=== PATIENT | male | born 1965 | race Caucasian/White ===

== ENCOUNTER 2017-01-05 15:34 | Outpatient (CLI) | payer BC ==
--- NOTE | 2017-01-05 16:43 | RAD ---
TWO VIEWS LUMBOSACRAL SPINE: 01/05/17 COMPARISON: MRI lumbar spine 09/12/13. HISTORY: Postoperative patient with back pain. FINDINGS: Two views of the lumbosacral spine shows the patient to be status post posterior fusion of L4 throug h S1 with left sided pedicle screws. No perihardware lucency is seen. The disc spacers are in good p osition in the disc spaces. Moderate osteophytes are seen in the lower thoracic and upper lumbar spi ne. IMPRESSION: Postsurgical changes of the lumbar spine without evidence of complication. POS: [facility]
== END 2017-01-05 15:35 | disposition home or self-care (01) ==
LOC: TBSIIMAG 15:34
PROVIDERS: ATTEND Physician Assistant
DX: M54.9 Dorsalgia, unspecified (principal); Z98.1 Arthrodesis status
CPT/HCPCS: 72100

== ENCOUNTER 2017-02-07 14:31 | Outpatient (CLI) | payer BC ==
--- NOTE | 2017-02-07 18:39 | RAD ---
LUMBAR SPINE TWO VIEW 02/07/17 HISTORY: Lumbar back pain, M54.9. COMPARISON: Radiograph 01/05/17. FINDINGS: Left sided pedicle screws are present from L4-S1. No evidence of hardware complication. No evidence of loosening. No fracture. The interbody cage at L5-S1 has displaced posteriorly into the thecal sac. IMPRESSION: New posterior displacement of the L5-S1 interbody cage. This is displaced into the thecal sac and re vision may be necessary. Code T POS: [facility]
== END 2017-02-07 14:32 | disposition home or self-care (01) ==
LOC: TBSIIMAG 14:31
PROVIDERS: ATTEND Physician Assistant
DX: M54.5 Low back pain (principal); M51.27 Other intervertebral disc displacement, lumbosacral region
CPT/HCPCS: 72100

== ENCOUNTER 2017-02-13 07:25 | Day surgery (SDC) | payer BC ==
[2017-02-10 12:48] VITALS: BMI 33.0
[2017-02-13 08:33] LABS: Hematocrit 45.1 % (42.0-52.0); Mean Platelet Volume 7.9 fL (7.4-10.4); Red Blood Cell (RBC) Count 4.96 mill/uL (4.70-6.10); White Blood Cell (WBC) Count 6.1 thou/uL (4.8-10.8)
[2017-02-13 08:53] LABS: Anion Gap 11 mmol/L (10-20); BUN (Urea Nitrogen) 9 mg/dL (8.4-25.7); Calc. Creatinine Clearance 187 mL/min (70-130); Calcium 9.5 mg/dL (7.8-10.44); Carbon Dioxide 27 mmol/L (22-29); Chloride 104 mmol/L (98-107); Estimated GFR-MDRD Greater than 90
[2017-02-13] MEDS ORDERED: Midazolam HCl 2 mg/2 ml Vial ONE (09:41)
[2017-02-13] MEDS ORDERED: Propofol 500 MG/50 ML VIAL ONE (09:41)
[2017-02-13] MEDS ORDERED: Fentanyl 100 MCG/2 ML VIAL ONE ×4 (09:41→12:39)
[2017-02-13] MEDS ORDERED: CEFAZOLIN/Water 2 GM/20 ML SYRINGE ONE (10:11)
[2017-02-13] MEDS ORDERED: Ondansetron HCl/PF 4 MG/2 ML Vial ONE (10:29)
[2017-02-13] MEDS ORDERED: Propofol 200 MG/20 ML VIAL ONE ×2 (10:29)
[2017-02-13] MEDS ORDERED: Glycopyrrolate 0.2 MG/ML 5 ML SYRINGE ONE (10:29)
[2017-02-13] MEDS ORDERED: Dexamethasone 20 MG/5 ML VIAL ONE (10:29)
[2017-02-13] MEDS ORDERED: Lidocaine 2% MPF 10 ML AMP (For Epidural Use) ONE (10:29)
--- NOTE | 2017-02-13 11:41 | OP ---
DATE OF PROCEDURE: 02/13/2017 SURGEON: Pavel Joseph M.D. STOCK BROKER: Eron Malone PROCEDURE: Removal of hardware L5-S1, exploration of spinal fusion L5-S1, cancellous bone chips, BM P, local morselized autograft. Revision fusion L5-S1. PROCEDURE IN DETAIL: The patient was brought to the operating room, intubated. He was rolled in th e prone position on gel-filled chest rolls. The L5-S1 region was exposed and our level was confirme d by x-ray. We identified the prior hardware, identified the migrated interbody device and remove t his without difficulty. Next, we exposed the right L5-S1 region and prepare for the purpose of arth rodesis. We did explore the fusion and did not identify any solid fusion. We placed a combination of local morselized autograft, cancellous bone chips and BMP soaked Gelfoam patties over the right L 5-S1 region for the purpose of arthrodesis. The wound was extensively irrigated, immaculate hemosta sis was secured. Vancomycin powder was applied and the wound was closed in anatomic layers.
[2017-02-13] MEDS ORDERED: Ketorolac Tromethamine 30 MG/ML VIAL ONE (13:11)
[2017-02-13] MEDS ORDERED: HYDROcodone/Acetaminophen 10/325 mg Tablet ONE (13:54)
== END 2017-02-13 16:00 | disposition home or self-care (01) ==
LOC: SDC 07:25
PROVIDERS: ATTEND Neurological Surgery
PROC: 0SP30AZ Removal of Interbody Fusion Device from Lumbosacral Joint, Open Approach (ICD-10-PCS; principal; 2017-02-13)
PROC: 0SG3071 Fusion of Lumbosacral Joint with Autologous Tissue Substitute, Posterior Approach, Posterior Column, Open Approach (ICD-10-PCS; principal; 2017-02-13)
DX: M54.16 Radiculopathy, lumbar region (principal); Z79.899 Other long term (current) drug therapy; Z88.2 Allergy status to sulfonamides; Z88.1 Allergy status to other antibiotic agents; Z91.041 Radiographic dye allergy status; Z98.1 Arthrodesis status; Z98.890 Other specified postprocedural states
CPT/HCPCS: 76001; 80048; 85027; 96374; C1713; J1100; J1885; J2001; J2250; J2405; J2704; J3010; J3370

== ENCOUNTER 2017-02-28 10:56 | Outpatient (CLI) | payer BC ==
--- NOTE | 2017-02-28 13:29 | RAD ---
TWO VIEWS LUMBAR SPINE: Date: 02-28-17 Comparison: 02-07-17 History: Left hip pain, prior back surgery. FINDINGS: Cutaneous sharla overlie the lower lumbar spine. There are stale left sided L4-5 and S1 pedicle scre ws with a vertically oriented interlocking esther. The intervertebral disc device present on the prior study at L5-S1 has been removed. There is a stabl e intervertebral disc device at the L4-5 level. There is disc space narrowing at L3-4 with anterior and posterior osteophyte formation. There is ante rior osteophyte formation at T12-L1, L1-2, and L2-3, stable. No acute osseous abnormality. No evidenc e for hardware failure. IMPRESSION: Post-operative and degenerative change as detailed above. POS: [facility]
== END 2017-02-28 10:57 | disposition home or self-care (01) ==
LOC: TBSIIMAG 10:56
PROVIDERS: ATTEND Physician Assistant
DX: M54.9 Dorsalgia, unspecified (principal); M47.896 Other spondylosis, lumbar region; Z98.890 Other specified postprocedural states
CPT/HCPCS: 72100

== ENCOUNTER 2017-04-18 15:19 | Outpatient (CLI) | payer BC ==
--- NOTE | 2017-04-18 15:51 | RAD ---
2 VIEWS LUMBAR SPINE: Date: 04/18/17 HISTORY: Other intervertebral disc degeneration. Post surgery follow-up evaluation. Pain in middle back. COMPARISON: 02/28/17. FINDINGS: Again noted are postsurgical changes of the lower lumbar spine with posterior fusion of the L4-5 and L5-S1 levels with unilateral left-sided pedicular screws and posterior rods. Intradiscal prosthesis a t the L4-5 level is again seen. No hardware complication is again seen. There are scattered osteophyt es seen with narrowing of the intervertebral disc spaces at multiple levels of the lumbar spine. Thes e findings are stable from prior study. The vertebral body heights are within normal limits and no fr acture or subluxation is appreciated. IMPRESSION: Stable postoperative and degenerative changes of the lumbar spine. POS: [facility]
== END 2017-04-18 15:20 | disposition home or self-care (01) ==
LOC: TBSIIMAG 15:19
PROVIDERS: ATTEND Neurological Surgery
DX: M51.36 Other intervertebral disc degeneration, lumbar region (principal); M47.896 Other spondylosis, lumbar region; Z98.1 Arthrodesis status
CPT/HCPCS: 72100

== ENCOUNTER 2017-06-01 09:33 | Outpatient (CLI) | payer BC ==
--- NOTE | 2017-06-01 10:36 | RAD ---
LUMBAR SPINE TWO VIEWS: History: Recent injury with pain in the low back. Comparison: 04-18-17 FINDINGS: Pedicle screws are again noted on the left at L4-5 and S1. Interbody implant at L4-5 is unchanged in position. Pedicle screws are unchanged. There is no evidence of listhesis. No compression deformity. Mild to moderate hypertrophic degenerative spurring is again noted. Facet hypertrophy is unchanged. IMPRESSION: Degenerative post-operative changes lumbar spine appear stable from 04-18-17. POS: [facility]
== END 2017-06-01 09:34 | disposition home or self-care (01) ==
LOC: TBSIIMAG 09:33
PROVIDERS: ATTEND Physician Assistant
DX: M54.9 Dorsalgia, unspecified (principal); M47.896 Other spondylosis, lumbar region; Z98.1 Arthrodesis status
CPT/HCPCS: 72100

== ENCOUNTER 2017-07-10 09:53 | Outpatient (CLI) | payer OTHER | END 2017-07-10 09:54 | disposition home or self-care (01) | LOC: BICRAD 09:53 | PROVIDERS: ATTEND Internal Medicine | DX: Z02.71 Encounter for disability determination (principal); M46.96 Unspecified inflammatory spondylopathy, lumbar region | CPT/HCPCS: 72100 ==

== ENCOUNTER 2017-07-25 09:13 | Outpatient (CLI) | payer BC ==
--- NOTE | 2017-07-25 11:06 | RAD ---
LUMBAR SPINE TWO VIEWS: History: M51.36 disc degeneration. Comparison: Lumbar spine, 06-01-17 FINDINGS: There is unilateral left sided posterior spinal fusion L4-S1. L4-5 anterolisthesis is unchanged. No e vidence for hardware failure. Laminectomy changes at L4-5 are unchanged without displacement of the d isc spacer. Narrowing of the L2-3 spinus process. No acute fracture. No malalignment. There are anterior osteophy la nena in the lower lumbar spine. IMPRESSION: Unchanged exam. No evidence for hardware failure. POS: [facility]
== END 2017-07-25 09:14 | disposition home or self-care (01) ==
LOC: TBSIIMAG 09:13
PROVIDERS: ATTEND Neurological Surgery
DX: M51.36 Other intervertebral disc degeneration, lumbar region (principal)
CPT/HCPCS: 72100

== ENCOUNTER 2017-09-26 09:19 | Day surgery (SDC) | payer BC ==
[2017-09-25 11:12] VITALS: BMI 29.4
[2017-09-26 10:17] VITALS: BP 125/85; TEMP 98.4
--- NOTE | 2017-09-26 12:47 | RAD ---
LUMBAR SPINE MYELOGRAM: 09/26/2017 HISTORY: Radiculopathy. Pain. Prior surgery. FINDINGS: Informed consent obtained prior to the procedure. Preprocedural pulling unit operator imaging demonstrates no anterolisthesis or retrolisthesis. Left-sided L4, L5, an d S1 pedicle screws are present with vertically oriented interlocking rods. There is lucency surroun ding the S1 pedicle screw, evidence of loosening. there is a disk device at L4-L5. There is multile humaira anterior osteophyte formation involving the lower thoracic spine and the upper lumbar spine. The patient was placed on the fluoroscopic table, in the oblique prone position, and the skin overlyi ng the lumbar spine was prepped and draped in a normal sterile fashion. The skin at the L3 level was anesthetized with 1% buffered Lidocaine. With intermittent fluoroscopic guidance, a 22 gauge spinal needle was advanced into the thecal sac, and removal of the stylet yield ed clear cerebrospinal fluid. Approximately 10 mL of Isovue-200 was then injected, outlining the nerve roots of the cauda equina an d filling the thecal sac. The needle was removed. The patient tolerated the procedure well. The patient was sent to the CT sc jean for a CT myelogram of the lumbar spine. EXPOSURE DATA: 0.9 minutes of fluoroscopic time 690.4 mGy per m2 IMPRESSION: Successful lumbar myelogram, as detailed above. POS: [facility]
--- NOTE | 2017-09-26 12:48 | CT ---
CT MYELOGRAM OF LUMBAR SPINE: Date: 09-26-17 Comparison: None. History: Back pain and right lower extremity radiculopathy. Technique: Following the intrathecal administration of contrast media, serial axial CT imaging is obt ained at 2.5 mm intervals from the lower lumbar spine through the lower sacrum. Coronal and sagittal reformatted imaging obtained. FINDINGS: There is no anterolisthesis or retrolisthesis noted. There is an intervertebral disc device at the L4-5 level. Conus medullaris terminates at the L1 level. T12-L1: Mild anterior osteophyte formation on the right. No central canal or neural foraminal stenosi s. Mild bilateral facet hypertrophy. L1-2: Mild bilateral facet hypertrophy. No central canal or neural foraminal stenosis. L2-3: Mild bilateral facet hypertrophy. No significant central canal or neural foraminal stenosis. L3-4: There is moderate bilateral facet hypertrophy with hypertrophy of ligamentum flavum, right grea ter than left. There is disc space narrowing and mild disc bulge with mild central canal stenosis and mild bilateral neural foraminal stenosis. L4-5: Bilateral facet hypertrophy with mild bilateral neural foraminal stenosis, right greater than l eft. The patient appears status post facetectomy on the left. There is a left sided pedicle screw pre sent. L5-S1: Prominent bilateral facet hypertrophy. Moderate bilateral neural foraminal stenosis, left grea ter than right. The patient appears status post facetectomy on the left. A left sided pedicle screw is present at L5 and S1. There is a vertically interlocking esther connecting the left pedicle screws of L4, L5, and S1. There is lucency surrounding the pedicle screw on the lef t at S1, evidence of pedicle screw loosening. There is degenerative change involving bilateral sacroiliac joints with anterior osteophyte formation , especially on the right. No acute fracture or evidence of dislocation is seen. There is bone graft material posteriorly and to the right of midline at L4, L5, and S1 levels. There is mild scattered atherosclerotic calcification of the infrarenal abdominal aorta in the arteri al structures of the pelvis. A small cyst is noted within the posterior aspect of the left renal lowe r pole. IMPRESSION: Multilevel post-operative and degenerative changes noted within the lumbar spine as above. Lucency noe rrounds the left S1 pedicle screw, evidence of loosening. POS: [facility]
== END 2017-09-26 12:00 | disposition home or self-care (01) ==
LOC: RAD 09:19
PROVIDERS: ATTEND Neurological Surgery
DX: M47.26 Other spondylosis with radiculopathy, lumbar region (principal); Z88.2 Allergy status to sulfonamides; Z91.041 Radiographic dye allergy status
CPT/HCPCS: 62304; 72132

== ENCOUNTER 2021-10-12 09:53 | Emergency (ER) | payer BC ==
[2021-10-12] MEDS ORDERED: HYDROcodone/Acetaminophen 5/325 mg Tablet ONE (11:52)
[2021-10-12] MEDS ORDERED: Ibuprofen 200 MG TAB ONE (11:52)
== END 2021-10-12 12:20 | disposition home or self-care (01) ==
LOC: ERS 09:53
DX: M79.671 Pain in right foot (principal); M79.89 Other specified soft tissue disorders; Z87.891 Personal history of nicotine dependence

== ENCOUNTER 2022-02-14 10:05 | Outpatient (CLI) | payer BC | END 2022-02-14 10:06 | disposition home or self-care (01) | LOC: SCSMRI 10:05 | PROVIDERS: ATTEND Nurse Practitioner Family | DX: R20.2 Paresthesia of skin (principal); M47.22 Other spondylosis with radiculopathy, cervical region; E04.1 Nontoxic single thyroid nodule | CPT/HCPCS: 70210; 72141 ==

== ENCOUNTER 2022-03-10 08:39 | Outpatient (CLI) | payer BC ==
[2022-03-10] MEDS ORDERED: Magnevist 469MG/ML 20 ML VIAL ONE (15:04)
== END 2022-03-10 08:40 | disposition home or self-care (01) ==
LOC: TBSIIMAG 08:39
PROVIDERS: ATTEND Neurological Surgery
DX: G50.0 Trigeminal neuralgia (principal); R51.9 Headache, unspecified
CPT/HCPCS: 70553; A9579

== ENCOUNTER 2022-04-14 10:32 | Outpatient (CLI) | payer BC | END 2022-04-14 10:33 | disposition home or self-care (01) | LOC: ULT 10:32 | PROVIDERS: ATTEND Neurological Surgery | DX: E04.1 Nontoxic single thyroid nodule (principal) | CPT/HCPCS: 76536 ==

== ENCOUNTER 2022-04-25 14:06 | Outpatient (CLI) | payer BC ==
[2022-04-25 14:59] LABS: Hemoglobin 14.5 g/dL (13.5-17.5); Mean Corpuscular HGB CONC 34.2 g/dL (32.0-36.0); Mean Corpuscular Hemoglobin 29.5 pg (27.0-33.0); Mean Corpuscular Volume 86.4 fl (81.2-95.1); Mean Platelet Volume 10.3 fl (7.4-10.4); Platelet Count 229 10x3/uL (150-450); Red Blood Cell (RBC) Count 4.91 10x6/uL (4.32-5.72); White Blood Cell (WBC) Count 6.3 10x3/uL (3.5-10.5)
[2022-04-25 15:12] LABS: Anion Gap 17 mmol/L (10-20); BUN (Urea Nitrogen) 11 mg/dL (8.4-25.7); Calc. Creatinine Clearance 0 mL/min (70-130); Calcium 9.3 mg/dL (7.8-10.44); Carbon Dioxide 22 mmol/L (22-29); Chloride 105 mmol/L (98-107); Estimated GFR 105; Glucose 88 mg/dL (70-105); Potassium 3.9 mmol/L (3.5-5.1); Sodium 140 mmol/L (136-145)
== END 2022-04-25 14:07 | disposition home or self-care (01) ==
LOC: LABBT 14:06
PROVIDERS: ATTEND Neurological Surgery
DX: Z01.812 Encounter for preprocedural laboratory examination (principal); M47.12 Other spondylosis with myelopathy, cervical region
CPT/HCPCS: 80048; 85027; 93005; 93010

== ENCOUNTER 2022-05-02 06:06 | Day surgery (SDC) | payer BC ==
[2022-04-28 09:32] VITALS: BMI 32.1
[2022-05-02] MEDS ORDERED: Midazolam HCl 2 mg/2 ml Vial ONE (08:11)
[2022-05-02] MEDS ORDERED: Famotidine/PF 20 mg/2ml Vial ONE (08:11)
[2022-05-02] MEDS ORDERED: Sodium Chloride 0.9% 100 ML ONE (08:14)
[2022-05-02] MEDS ORDERED: CEFAZOLIN 2 GM VIAL ONE (08:14)
[2022-05-02] MEDS ORDERED: fentaNYL PF 100 MCG/2 ML SYRINGE ONE (08:19)
[2022-05-02] MEDS ORDERED: Fentanyl 250 MCG/5 ML VIAL ONE (08:26)
[2022-05-02] MEDS ORDERED: Propofol 1,000 MG/100 ML VIAL IV ONE (08:26)
[2022-05-02] MEDS ORDERED: PHENYLEPHRINE-NS 100 MCG/ML 10 ML SYRINGE ONE (08:26)
[2022-05-02] MEDS ORDERED: Glycopyrrolate 0.2 MG/ML 5 ML SYRINGE ONE (08:29)
[2022-05-02] MEDS ORDERED: Rocuronium Bromide 10 MG/ML (10ML VIAL) ONE (08:29)
[2022-05-02] MEDS ORDERED: Dexamethasone 20 MG/5 ML VIAL ONE (08:29)
[2022-05-02] MEDS ORDERED: Ondansetron PF 4 MG/2 ML Vial ONE (08:29)
[2022-05-02] MEDS ORDERED: PROPOFOL 200 MG/20 ML VIAL ONE (08:29)
[2022-05-02] MEDS ORDERED: NEOSTIGMINE 3 MG/3 ML SYR 3 MG/3 ML SYRINGE ONE (08:29)
[2022-05-02] MEDS ORDERED: Ketorolac Tromethamine 30 MG/ML VIAL ONE (08:29)
[2022-05-02] MEDS ORDERED: Fentanyl 100 MCG/2 ML VIAL ONE (10:11)
[2022-05-02] MEDS ORDERED: Tamsulosin HCl 0.4 MG CAP ONE (11:23)
[2022-05-02] MEDS ORDERED: HYDROcodone/Acetaminophen 5/325 mg Tablet ONE (12:41)
== END 2022-05-02 12:48 | disposition home or self-care (01) ==
LOC: SDC 06:06
PROVIDERS: ATTEND Neurological Surgery
PROC: 0RG10A0 Fusion of Cervical Vertebral Joint with Interbody Fusion Device, Anterior Approach, Anterior Column, Open Approach (ICD-10-PCS; principal; 2022-05-02)
DX: M50.01 Cervical disc disorder with myelopathy, high cervical region (principal); M47.12 Other spondylosis with myelopathy, cervical region; J45.909 Unspecified asthma, uncomplicated; Z79.1 Long term (current) use of non-steroidal anti-inflammatories (NSAID); Z88.1 Allergy status to other antibiotic agents; Z88.2 Allergy status to sulfonamides; Z91.041 Radiographic dye allergy status; Z98.1 Arthrodesis status
CPT/HCPCS: C1713; J1100; J1885; J2250; J2405; J2704; J3010; J3490; S0028

== ENCOUNTER 2022-05-19 12:38 | Outpatient (CLI) | payer BC | END 2022-05-19 12:39 | disposition home or self-care (01) | LOC: TBSIIMAG 12:38 | PROVIDERS: ATTEND Neurological Surgery | DX: M47.12 Other spondylosis with myelopathy, cervical region (principal); M47.22 Other spondylosis with radiculopathy, cervical region; Z98.1 Arthrodesis status | CPT/HCPCS: 72040 ==

== ENCOUNTER 2022-05-30 12:17 | Day surgery (SDC) | payer BC ==
[2022-05-26 14:06] VITALS: BMI 32.1
[~2022-05-30 12:17] MED LIST: FLU VACC QS2022-23(6MOS UP)/PF 60 MCG/0.5 ML SYRINGE IM ONE
[2022-05-30] MEDS ORDERED: Sodium Bicarbonate 2.5 MEQ/5 ML VIAL ONE (12:33)
[2022-05-30] MEDS ORDERED: Lidocaine 1% PF 5 ML VIAL ONE (12:33)
[2022-05-30 14:04] VITALS: BP 139/86
== END 2022-05-30 13:50 | disposition home or self-care (01) ==
LOC: ULT 12:17
PROVIDERS: ATTEND Internal Medicine Endocrinology, Diabetes & Metabolism
PROC: 0G9H3ZX Drainage of Right Thyroid Gland Lobe, Percutaneous Approach, Diagnostic (ICD-10-PCS; principal; 2022-05-30)
DX: E04.1 Nontoxic single thyroid nodule (principal); Z88.1 Allergy status to other antibiotic agents; Z88.2 Allergy status to sulfonamides; Z91.041 Radiographic dye allergy status
CPT/HCPCS: 10005; 88173; 88305

== ENCOUNTER 2022-07-26 13:51 | Outpatient (CLI) | payer BC | END 2022-07-26 13:52 | disposition home or self-care (01) | LOC: TBSIIMAG 13:51 | PROVIDERS: ATTEND Neurological Surgery | DX: M48.02 Spinal stenosis, cervical region (principal); M47.22 Other spondylosis with radiculopathy, cervical region; M25.78 Osteophyte, vertebrae; Z98.890 Other specified postprocedural states | CPT/HCPCS: 72040 ==